=== PATIENT | female | born 1985 | race Caucasian/White ===

== ENCOUNTER 2017-07-25 04:36 | Emergency (ER) | payer OTHER ==
[2017-07-25] MEDS ORDERED: OXYCODONE-ACETAMINOPHEN 5-325 MG TABLET PO ONE (05:02)
[2017-07-25] MEDS ORDERED: AMOXICILLIN TRIHYDRATE 500 MG CAPSULE PO ONE (05:03)
[2017-07-25] MEDS ORDERED: ONDANSETRON 4 MG TAB.RAPDIS PO ONE (05:03)
[2017-07-25] MEDS ORDERED: HYDROCODONE/ACETAMINOPHEN 5-325 MG (6 TAB/ER DISP) PO PRN (05:03)
--- NOTE | 2017-07-25 05:05 | ER Document Report ---
HPI - HPI Patient complains to provider of: Dental pain Pain Level: 5 Context: Patient is a 32-year-old female that comes emergency department for chief complaint of dental pain. She states that her 2 started hurting yesterday but tonight she started having some swelling along the side of her face/jaw. She states she had a filling come out and also has a crown in that area. She denies neck pain, difficulty swallowing, fever, or any other symptoms at this time. LMP within the past month. - CONSTITUTIONAL Constitutional: DENIES: Fever, Chills - EENT EENT: DENIES: Sore Throat, Ear Pain, Eye problems - CARDIOVASCULAR Cardiovascular: DENIES: Chest pain - RESPIRATORY Respiratory: DENIES: Trouble Breathing, Coughing - GASTROINTESTINAL Gastrointestinal: DENIES: Abdominal Pain, Black / Bloody Stools - URINARY Urinary: DENIES: Dysuria, Urgency, Frequency Past Medical History - General Information source: Patient - Social History Smoking Status: Never Smoker Chew tobacco use (# tins/day): No Frequency of alcohol use: None Lives with: Family Family History: Reviewed & Not Pertinent Patient has suicidal ideation: No Patient has homicidal ideation: No - Medical History Medical History: Negative Renal/ Medical History: Denies: Hx Peritoneal Dialysis Surgical Hx: Negative - Immunizations Immunizations up to date: Yes Hx Diphtheria, Pertussis, Tetanus Vaccination: Yes Vertical Provider Document - CONSTITUTIONAL General Appearance: WD/WN, No Apparent Distress - INFECTION CONTROL TRAVEL OUTSIDE OF THE [place] IN LAST 30 DAYS: No - HEENT HEENT: Atraumatic, Normocephalic Mouth Diagram: 1 - [place] and dental caries, erythema of the gumline with mild tenderness, no fluctuance, swelling, no obvious abscess or other abnormality in the oropharyngeal cavity - NECK Neck: Normal Inspection. negative: Lymphadenopathy-Left, Lymphadenopathy-Right - RESPIRATORY Respiratory: Breath Sounds Normal, No Respiratory Distress O2 Sat by Pulse Oximetry: 99 - CARDIOVASCULAR Cardiovascular: Regular Rate, Regular Rhythm - GI/ABDOMEN Gastrointestinal: Abdomen Soft, Abdomen Non-Tender - NEURO Level of Consciousness: Awake, Alert, Appropriate - DERM Integumentary: Warm, Dry, No Rash Course - Re-evaluation Re-evalutation: Patient states she has dental insurance and will get her dentist. - Vital Signs Vital signs: Temp Pulse Resp BP Pulse Ox 98 F 86 18 111/49 L 99 07/25/17 04:42 07/25/17 04:42 07/25/17 04:42 07/25/17 04:42 07/25/17 04:42 Discharge - Discharge Clinical Impression: Pain, dental Condition: Stable Disposition: HOME, SELF-CARE Additional Instructions: Your examination is consistent with a dental infection. Take the amoxicillin as prescribed to completion. Take the provided medication for pain if needed. Call and set up appointment with a dentist to provide follow-up care to prevent this from happening again. Return if you worsen including increased swelling of the face. Prescriptions: Amoxicillin Trihydrate [Amoxil 500 mg Capsule] 500 mg PO BID #20 cap
[2017-07-25 05:51] VITALS: BP 112/89
== END 2017-07-25 05:20 | disposition home or self-care (01) ==
LOC: ER 04:36
DX: K08.9 Disorder of teeth and supporting structures, unspecified (principal)
CPT/HCPCS: 99282; S0119